=== PATIENT | female | born 1985 | race Caucasian/White ===

== ENCOUNTER 2016-09-22 12:09 | Emergency (ER) | payer MEDICAID, OTHER ==
[~2016-09-22] VITALS: Ht 154.9 cm; Wt 53.5 kg
[~2016-09-22 12:09] MED LIST: BUSP10 PO; PAXI10TA PO
[2016-09-22 12:24] VITALS: BP 110/76; PULSE 90; RESP 16; TEMP 98.6; O2SAT 100
--- NOTE | 2016-09-22 12:41 | PD ---
HPI Chief Complaint: Injury Time Seen by Provider: 12:40 Travel History International Travel<30 days: No Contact w/Intl Traveler<30days: No Traveled to known affect area: No History of Present Illness HPI 30-year-old 25 week gravid right-hand dominant female presents to the ED for evaluation of 3 day history of pain and swelling of the right upper extremity. 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 She denies numbness, tingling, weakness, limitations to range of motion of the right upper extremity. Patient denies previous injury to the area. She is been treating at home with ice and Austin balm with no improvement of symptoms. She endorses active movement. Next OB appointment in 5 days. PFSH Past Medical History Hx Anticoagulant Therapy: No Anxiety: Yes Cancer: No Cardiovascular Problems: Yes (HTN) Chemotherapy: No Cerebrovascular Accident: No Diabetes: No Diminished Hearing: No Endocrine: No Immune Disorder: No Respiratory: No Immunizations Current: Yes Migraines: Yes Seizures: Yes (Twice in the past) ?: LMP: 04/09/16 : 1 Para: 1 Past Surgical History Section: Yes Hysterectomy: No Other Surgery: Yes () Social History Alcohol Use: No Tobacco Use: No Substance Use: Yes (ecstasy and pot denies at this time) Allergies-Medications (Allergen,Severity, Reaction): Coded Allergies: Tramadol (Verified Allergy, Severe, seizure, 09/22/16) Seroquel (Verified Adverse Reaction, Severe, MUSCLE SPASMS, 09/22/16) *MDRO Multi-Drug Resistant Organism (Verified Adverse Reaction, Unknown, ) MRSA PCR positive 02/17/2015 Reported Meds & Prescriptions Reported Meds & Active Scripts Active No Active Prescriptions or Reported Medications Review of Systems Except as stated in HPI: all other systems reviewed are Neg Physical Exam Narrative GENERAL: Well-nourished, well-developed white female in no acute distress. SKIN: Warm and dry. HEAD: Normocephalic. EYES: No scleral icterus. No injection or drainage. NECK: Supple, trachea midline. No JVD or lymphadenopathy. CARDIOVASCULAR: Regular rate and rhythm without murmurs, gallops, or rubs. RESPIRATORY: Breath sounds equal bilaterally. No accessory muscle use. GASTROINTESTINAL: Abdomen gravid, soft, non-tender, nondistended. MUSCULOSKELETAL: No cyanosis, or edema. FOCUSED RIGHT UPPER EXTREMITY EXAM: 2+ radial pulse. Tender to palpation over the tendon of the extensor carpi radialis. There is mild crepitus to palpation. Pain worsened with flexion and extension of the index finger. Patient retains flexion, extension, supination, pronation of the right elbow and wrist. Patient retains full ROM of the digits of the right hand. Sensation intact to light touch distally. Cap refill less than 2 seconds. BACK: Nontender without obvious deformity. No CVA tenderness. Data Data Last Documented VS Vital Signs Date Time Temp Pulse Resp B/P Pulse Ox O2 Delivery O2 Flow Rate FiO2 09/22/16 12:24 98.6 90 16 110/76 100 MDM Medical Decision Making Medical Screen Exam Complete: Yes Emergency Medical Condition: Yes Differential Diagnosis Tendinitis versus calcific tendinitis versus sprain versus strain versus other Narrative Course 30-year-old 25 week gravid right-hand dominant female presents to the ED for evaluation of 3 day history of pain and swelling of the right upper extremity. 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 She denies numbness, tingling, weakness, limitations to range of motion of the right upper extremity. Patient denies previous injury to the area. She is been treating at home with ice and Austin balm with no improvement of symptoms. She endorses active movement. Next OB appointment in 5 days. Vitals reviewed. Physical exam reveals a nontoxic-appearing white female in no acute distress. Focused right upper extremity exam reveals a 2+ radial pulse. TTP with mild crepitus over the tendons of the extensor carpi radialis. Pain worsened with flexion and extension of the index finger. Patient retains flexion, extension, supination, pronation of the right elbow and wrist. Patient retains full ROM of the digits of the right hand. Sensation intact to light touch distally. Cap refill less than 2 seconds. This is tendinitis due to repetitive use. Given the patient's NSAIDs are contraindicated. The patient had a Francesco bandage in her purse, I demonstrated proper wrapping techniques. I instructed her to rest, ice, elevate the extremity, take Tylenol up to 3 times a day as needed for pain. She was given a note for 1 weeks time off work. She is instructed to follow-up with the [facility] as planned. She indicated understanding of instructions and is amenable to plan of care. She is stable and discharged home. Diagnosis Primary Impression: Tendonitis of wrist, right Referrals: Client Consultant Patient Instructions: General Instructions, Tendinitis (ED) Additional Instructions: Rest, ice, elevate the extremity. Apply ice no longer than 10-15 minutes per hour a few times a day. Tylenol up to 3 times a day as needed for pain. Return to normal, gentle activity as tolerated. Follow up with your [facility] as planned. Return to the ED for any urgent or emergent medical condition. Scripts No Active Prescriptions or Reported Meds Disposition: 01 DISCHARGE HOME Condition: Stable Mona Rush Sep 22, 2016 12:41
== END 2016-09-22 13:21 | disposition home or self-care (01) ==
LOC: PHEFT 12:09
DX: M77.9 Enthesopathy, unspecified (principal); I10 Essential (primary) hypertension; X50.3XXA Overexertion from repetitive movements, initial encounter; Y99.0 Civilian activity done for income or pay
CPT/HCPCS: 99282

== ENCOUNTER 2016-11-17 12:57 | Inpatient (IN) | payer MEDICAID ==
[2016-12-16] VITALS (26 sets, daily range): BP systolic 107–124; BP diastolic 59–77; PULSE 74–107; RESP 16–20; TEMP 97.9–99.3; O2SAT 98–100
[2016-12-16] MEDS ORDERED: ceFAZolin 2 GM PREMIX 50 ML IV SCH (07:30)
[2016-12-16] MEDS ORDERED: LACTATED RINGER'S 1000 ML IV ONE (07:30)
[2016-12-16] MEDS ORDERED: CITRIC ACID-SODIUM CITRATE LIQ 30 ML UDC PO SCH (07:30)
[2016-12-16] MEDS: LACTATED RINGER'S 1000 ML IV SCH ×2 (08:10→14:40)
[2016-12-16 08:26] LABS: AUTOMATED NEUTROPHIL # 6.5 TH/MM3 (1.8-7.7); BASOPHIL % 0.2 % (0.0-2.0); EOSINOPHIL % 0.4 % (0.0-4.0); HEMATOCRIT 35.2 % (35.0-46.0); HEMO FLAGS DIFF FINAL; LYMPH % 21.5 % (9.0-44.0); MEAN CELL VOLUME 95.8 FL (80.0-100.0); MEAN CORPUSCULAR HEMOGLOBIN 32.2 PG (27.0-34.0); MEAN CORPUSCULAR HGB CONC 33.6 % (32.0-36.0); MONO % 8.9 % (0.0-8.0); PLATELET COUNT 228 TH/MM3 (150-450); RED BLOOD COUNT 3.67 MIL/MM3 (4.00-5.30); RED CELL DISTRIBUTION WIDTH 12.8 % (11.6-17.2); WHITE BLOOD COUNT 9.4 TH/MM3 (4.0-11.0)
[2016-12-16 08:36] LABS: BACTERIA, URINE MOD /hpf; BLOOD, URINE NEG (NEG); COMMENT (UR) CULTURE INDICATED; CULTURE IF INDICATED CULTURE INDICATED; GLUCOSE,URINE NEG (NEG); KETONE, URINE NEG (NEG); MUCUS URINE FEW /lpf (OCC); NITRITE,URINE NEG (NEG); PH, URINE 6.5 (5.0-8.5); SQUAMOUS EPITHELIAL CELL URINE 16 /hpf (0-5); URINE COLOR YELLOW (YELLW/STRAW)
[2016-12-16] MEDS ORDERED: DICLOFENAC SODIUM 37.5 MG/ML VIAL IV PUSH ONE (08:50)
[2016-12-16] MEDS ORDERED: ONDANSETRON HCL 4 MG/2 ML VIAL ONE (08:51)
[2016-12-16] MEDS ORDERED: ACETAMINOPHEN 1000 MG/100 ML VIAL IV ONE (08:51)
[2016-12-16] MEDS ORDERED: OXYTOCIN 10 UNIT/ML AMP ONE (08:51)
[2016-12-16] MEDS ORDERED: MORPHINE SULFATE PF 5 MG/10 ML VIAL ONE (08:51)
[2016-12-16] MEDS ORDERED: SODIUM CHLORIDE 0.9% FLUSH 10 ML FLUSH IV FLUSH PRN (09:15)
[2016-12-16] MEDS ORDERED: DOCUSATE SODIUM 50 MG/SENNA 8.6 MG TAB PO PRN (09:15)
[2016-12-16] MEDS ORDERED: oxyCODONE/ACETAMINOPHEN 5 MG/325 MG TAB PO PRN ×2 (09:15)
[2016-12-16] MEDS ORDERED: ZOLPIDEM TARTRATE 5 MG TAB PO PRN (09:15)
[2016-12-16] MEDS ORDERED: ONDANSETRON HCL 4 MG/2 ML VIAL IV PUSH PRN (09:15)
[2016-12-16] MEDS ORDERED: OXYTOCIN 30 UNITS-500ML PREMIX 500 ML IV ONE (09:15)
[2016-12-16] MEDS: ACETAMINOPHEN 1000 MG/100 ML VIAL IV SCH (09:30)
[2016-12-16] MEDS: DICLOFENAC SODIUM 37.5 MG/ML VIAL IV PUSH SCH ×3 (09:30→23:06)
--- NOTE | 2016-12-16 10:04 | PD.OB.DELI ---
Procedure Note Section Procedure Pre Op Diagnosis 37 week IUP cholestasis hep C prior section Post Op Diagnosis: Post Op Diagnosis same, delivered Performed by Fani Fair Procedure: Repeat Low Transverse Sec, Other (BTL ) Indication for delivery: Desired elective repeat Informed consent obtained: For anesthesia, For procedure Confirmed correct: Patient, Procedure, Site, Time-out taken Anesthesia: Spinal Medication prior to procedure: As documented in eMAR Monitoring during procedure: Blood pressure monitoring Urinary catheter: Inserted using sterile technique, To dependent drainage, ml urine output Sterile preparation: Duraprep, In usual fashion Position: Supine with wedge to right side Operative Features Skin Incision: Pfannenstiel Uterine Incision: Low transverse w/knife / blunt ext Membranes Ruptured: Artificially Presentation: Occiput anterior Delivery of : Assisted : Female One Minute : 8 Five Minute : 9 Weight: 5 12 Status of infant: Viable Placenta delivered: Intact Medications: Antibiotics Estimated blood loss: 500 Procedure tolerated: Well Maternal Condition: Stable Condition: Stable Fani Fair MD Dec 16, 2016 10:04
[2016-12-16] MEDS ORDERED: OXYTOCIN 30 UNITS-500ML PREMIX 500 ML ONE (10:34)
[2016-12-16] MEDS ORDERED: fentaNYL CITRATE 250 MCG/5 ML AMP ONE (10:43)
[2016-12-16] MEDS ORDERED: EPIDURAL-DIPHENHYDRAMINE HCL 50 MG CAP PO PRN (12:30)
[2016-12-16] MEDS ORDERED: EPIDURAL-NALOXONE HCL 0.4 MG/ML AMP IV PRN (12:30)
[2016-12-16] MEDS ORDERED: EPIDURAL-NO SYSTEMIC NARCOTICS PRN (12:30)
[2016-12-16] MEDS ORDERED: EPIDURAL-DIPHENHYDRAMINE HCL 50 MG/ML VIAL IV PUSH PRN (12:30)
[2016-12-16] MEDS ORDERED: EPIDURAL-DO NOT ADMINISTER ANTICOAGULANTS PRN (12:30)
--- NOTE | 2016-12-16 13:37 | MH ---
cc: AWA BHAKTA DATE OF ADMISSION: 12/16/2016 PREOPERATIVE DIAGNOSIS: 37 week intrauterine with cholestasis of Prior section x1 and desired repeat with tubal. History of IV drug use and prolonged recovery. Hepatitis C. POSTOPERATIVE DIAGNOSIS 37 week intrauterine with cholestasis of Prior section x1 and desired repeat with tubal. History of IV drug use and prolonged recovery. Hepatitis C. PROCEDURE Repeat low transverse scheduled procedure is repeat low transverse segment section. HISTORY OF PRESENT ILLNESS The patient is a 31-year-old female 2, para 1-0-0-1 at 37 and 07/22 weeks estimated gestational age by 14-week ultrasound, who began at about 35 weeks to have severe itching of her extremities and torso. She was scratching her skin open. Medrol Dosepak and topical' s were not helping. Liver functions were mildly elevated but it was known that she was Hepatitis C positive. However, bile acids did come back elevated and then repeat functions one week later showed mild further elevation in her Liver function tests and bile acids. A decision was made to proceed with her section today which is Sunday12/17/2015. The risks, benefits, indications, have all been explained to her. She has had no labor, gestational diabetes or hypertension. She was compliant with her care. The patient had good movement. No leaking, bleeding. Her blood type was Rh positive. She is immune to [place] measles and chickenpox. She is not anemic. Urinalysis was negative. She is Hepatitis C positive but other serology is negative. Her Glucola was normal. FAMILY HISTORY: Family history is noncontributory. She currently uses no substances. OBSTETRICAL HISTORY: She has had a previous section for a cephalic pelvic disproportion. She desires a repeat and a tubal on she has been counseled on the risks, benefits, alternatives, expectations of tubal ligation PHYSICAL EXAMINATION IN GENERAL: She is a well-developed, well-nourished female in no acute distress. VITAL SIGNS: She is afebrile with stable vital signs. NECK: She has no thyromegaly. LUNGS: Her lungs were clear. HEART: Her heart rate and rhythm are regular, her fundus is 37 weeks. The is vertex position. The placenta is a low-lying posterior placenta on ultrasound. The baby is appropriate for gestational age. The cervix was 50%, fingertip in the office. EXTREMITIES: Show no edema. No elevation of tendon reflexes. She does have scratches from her itching. IMPRESSION At this point is early term IUP with cholestasis of prior section and desire for repeat, history of IV drug use and hepatitis C positive. PLAN: Plan is to proceed with repeat and tubal ligation after she is done nursing her . We will see if we can enter into her Medicaid, hepatitis C treatment program. Awa Bhakta MD PPC/ /9:06 AM /1:24 PM
[2016-12-16] MEDS: LACTATED RINGER'S 1000 ML INJ 1,000 ML IV SCH (14:06)
[2016-12-16] MEDS ORDERED: ACETAMINOPHEN 1000 MG/100 ML VIAL IV SCH ×2 (17:30)
[2016-12-16] MEDS ORDERED: OXYTOCIN 30 UNITS-500ML PREMIX 500 ML IV PRN (19:15)
[2016-12-16] MEDS ORDERED: SODIUM CHLORIDE 0.9% FLUSH 10 ML FLUSH IV FLUSH SCH (21:00)
[2016-12-17] MEDS: LACTATED RINGER'S 1000 ML INJ 1,000 ML IV SCH (01:00)
[2016-12-17] MEDS: DICLOFENAC SODIUM 37.5 MG/ML VIAL IV PUSH SCH (04:52)
[2016-12-17 06:31] LABS: AUTOMATED NEUTROPHIL # 6.6 TH/MM3 (1.8-7.7); BASOPHIL % 0.2 % (0.0-2.0); EOSINOPHIL # 0.1 TH/MM3 (0-0.4); EOSINOPHIL % 0.6 % (0.0-4.0); HEMATOCRIT 30.6 % (35.0-46.0); HEMO FLAGS DIFF FINAL; LYMPH % 20.5 % (9.0-44.0); LYMPHOCYTE # 1.9 TH/MM3 (1.0-4.8); MEAN CELL VOLUME 95.2 FL (80.0-100.0); MEAN CORPUSCULAR HEMOGLOBIN 32.9 PG (27.0-34.0); MEAN CORPUSCULAR HGB CONC 34.5 % (32.0-36.0); MONO % 7.8 % (0.0-8.0); NEUT % 70.9 % (16.0-70.0); PLATELET COUNT 186 TH/MM3 (150-450); RED BLOOD COUNT 3.21 MIL/MM3 (4.00-5.30); RED CELL DISTRIBUTION WIDTH 12.6 % (11.6-17.2); WHITE BLOOD COUNT 9.3 TH/MM3 (4.0-11.0)
[2016-12-17 09:35] VITALS: BP 110/70; PULSE 80; RESP 18; TEMP 97.8
[2016-12-17] MEDS: IBUPROFEN 600 MG TAB PO PRN ×2 (10:29→18:00)
[2016-12-17] MEDS: LACTATED RINGER'S 1000 ML IV SCH ×2 (10:30→17:20)
--- NOTE | 2016-12-17 10:50 | HHI.OB ---
Subjective Post Operative Day: 1 Objective Vitals/I&O Vital Signs Date Time Temp Pulse Resp B/P Pulse Ox O2 Delivery O2 Flow Rate FiO2 12/17/16 09:35 110/70 12/17/16 09:35 97.8 80 18 12/16/16 20:30 98.7 87 18 98 12/16/16 20:30 107/65 12/16/16 15:30 99.3 82 18 12/16/16 15:30 108/75 12/16/16 13:30 98.7 79 16 110/70 12/16/16 11:52 97.9 77 19 117/77 12/16/16 11:18 97.9 12/16/16 11:17 90 18 100 12/16/16 11:16 124/75 12/16/16 11:01 79 18 111/61 100 Result Diagram: 12/17/16 0617 Objective Remarks GENERAL: Well-nourished, well-developed patient. CARDIOVASCULAR: Regular rate and rhythm without murmurs, gallops, or rubs. RESPIRATORY: Breath sounds equal bilaterally. No accessory muscle use. ABDOMEN/GI: Abdomen soft, non-tender, bowel sounds present. Incision: Clean, dry and intact. Fundus: Firm, non-tender at umbilicus. GENITOURINARY: Light to moderate bleeding. EXTREMITIES: No cyanosis or edema, non-tender, without signs of DVT. Medications and IVs Current Medications Medications (Trade) Dose Ordered Sig/Minerva Route Start Time Stop Time Status Last Admin (Lr 1000 ml Inj) 1,000 ml @ 150 mls/hr Q6H40M IV 12/16/16 08:00 12/16/16 08:10 (NS Flush) 2 ml BID IV FLUSH 12/16/16 21:00 (NS Flush) 2 ml UNSCH PRN IV FLUSH 12/16/16 09:15 (Mylicon Chew) 80 mg QID PRN PO 12/16/16 09:15 (Motrin) 600 mg Q6H PRN PO 12/16/16 09:15 12/17/16 10:29 (Percocet 5-325 Mg) 1 tab Q4H PRN PO 12/16/16 09:15 (Percocet 5-325 Mg) 2 tab Q4H PRN PO 12/16/16 09:15 (Huyen-Colace) 2 tab Q12H PRN PO 12/16/16 09:15 (Ambien) 5 mg HS PRN PO 12/16/16 09:15 (M-M-R Ii Inj) 0.5 ml ONCE ONCE SQ 12/17/16 16:00 12/17/16 16:01 (Boostrix Inj) 0.5 ml ONCE ONCE IM 12/17/16 16:00 12/17/16 16:01 (Zofran Inj) 4 mg Q6H PRN IV PUSH 12/16/16 09:15 Miscellaneous Information NO SYSTEMIC NARCOTICS TO BE GIVEN FO... UNSCH PRN .XX 12/16/16 12:30 12/17/16 12:29 (Narcan Inj) 0.4 mg UNSCH PRN IV 12/16/16 12:30 12/17/16 12:29 (Benadryl Inj) 25 mg Q6H PRN IV PUSH 12/16/16 12:30 12/17/16 12:29 12/16/16 14:05 (Benadryl) 50 mg Q6H PRN PO 12/16/16 12:30 12/17/16 12:29 Miscellaneous Information ALL NURSING DEPARTMENTS UNSCH PRN .XX 12/16/16 12:30 12/17/16 12:29 Assessment/Plan Assessment and Plan Doing well post op day one incision clean and dry LFTS in am routine stay anticipated Fani Fair MD Dec 17, 2016 10:50
[2016-12-17] MEDS: SIMETHICONE 80 MG CHEWABLE TAB PO PRN (15:26)
[2016-12-17 15:35] VITALS: BP 105/75; PULSE 92; RESP 20; TEMP 98
[2016-12-17] MEDS ORDERED: DIPHTH/TETANUS/ACEL PERTUSSIS (BOOSTER) 0.5 ML VIAL/PFS IM ONE (16:00)
[2016-12-17] MEDS ORDERED: MEASLES, MUMPS, RUBELLA VACCINE 0.5 ML VIAL SQ ONE (16:00)
--- NOTE | 2016-12-17 16:23 | MP ---
cc: FANI BHAKTA M.D. DATE OF SURGERY: 12/16/2016. PREOPERATIVE DIAGNOSIS: 1. A 37 week intrauterine with cholestasis of . 2. History of hepatitis C. 3. Previous section x1 with desired repeat and tubal ligation. POSTOPERATIVE DIAGNOSIS 1. A 37 week intrauterine with cholestasis of . 2. History of hepatitis C. 3. Previous section x1 with desired repeat and tubal ligation. OPERATIVE PROCEDURE PERFORMED: Repeat low transverse segment section, bilateral tubal ligation, actually it was a classic Keith on the right side and a fimbriectomy on the left side. SURGEON: Fani Bhakta MD. JAVA DEVELOPER: DAVID Silvestre. ANESTHESIA: Spinal with Duramorph. FINDINGS: A living female weighing 5 pounds 12 ounces was delivered from CECIL position with clear fluid and no nuchal cord. Her Apgars were 8 at one and 9 at five. We did not clamp the cord for 45 seconds. She had a good cry on the abdomen and did stay for skin to skin. Tubal was unremarkable. There did appear to be some ecchymosis between the bladder at the lower uterine segment. This was repaired with chromic. Urine was noted to be pink-tinged at the end of the case but it is anticipated it will resolve. DESCRIPTION OF THE PROCEDURE IN DETAIL: The patient was walked to the operative room after she was again consented. She was sat on the operating room table and a spinal was administered. She was placed in dorsal supine position with weight off the vena cava. A Corado catheter was placed. Sequential stockings were placed. She received 1 gram Ancef preoperatively. She was prepped and draped in the usual sterile fashion. A time-out was performed. Analgesia was confirmed and then a Pfannenstiel incision was made through her previous incision and taken down through the subcutaneous tissue to the rectus fascia. The rectus fascia was incised in an elliptical fashion and then sharply dissected off the rectus muscle superiorly and inferiorly. A mild rectus diastasis was noted and the midline was and the parietal peritoneum entered. The uterus was entered gently with a knife in the midline and this was extended in a vertical blunt fashion. The amniotic sac was intact and the fluid was clear. The infant was then delivered with the classic maneuvers. The cord was clamped x2 and cut after 45 seconds and she was handed to the neonatology team in attending. Cord blood was obtained. The posterior placenta was removed intact and noted to have a three-vessel cord. The uterus was then massaged, cleaned and then the incision was closed with chromic in a running interlocking fashion followed by a second horizontal imbricating layer. Additional suture was thrown between the lower uterine segment and the bladder. The right tube was then identified and the fimbria was scarred to very large varicosities so a classic Keith was done on this side with the midline tube tied off x3 and the knuckle excised. On the patient's left, a classic fimbriectomy was performed. Then the uterus was replaced into the abdominal cavity and the incision carefully checked for hemostasis. Irrigation was performed and then the rectus muscles / peritoneum were closed in a running fashion. The fascia was closed with Vicryl in a running, non-interlocking fashion. Subcutaneous layer was closed with 3-0 plain and the skin was closed with 4-0 Vicryl on a Gary needle. Fani Bhakta MD PPC/JCC /10:08 AM /4:13 PM
[2016-12-17] MEDS: ACETAMINOPHEN 325 MG TAB PO PRN (23:39)
[2016-12-17] MEDS ORDERED: KETOROLAC TROMETHAMINE 60 MG/2 ML (IM) VIAL IM ONE (23:45)
[2016-12-18] MEDS: SIMETHICONE 80 MG CHEWABLE TAB PO PRN (03:02)
[2016-12-18] MEDS: IBUPROFEN 600 MG TAB PO PRN ×3 (06:02→17:53)
[2016-12-18] MEDS: ACETAMINOPHEN 325 MG TAB PO PRN ×3 (06:02→17:53)
[2016-12-18 06:14] LABS: INDIRECT BILIRUBIN 0.2 MG/DL (0.0-0.8); TOTAL BILIRUBIN ADULT 0.3 MG/DL (0.2-1.0)
[2016-12-18 08:10] VITALS: BP 117/78; PULSE 81; RESP 18; TEMP 98.7
--- NOTE | 2016-12-18 08:55 | HHI.OB ---
Subjective Post Day: 2 Remarks doing well, breast and bottlefeeding, + flatus Objective Vitals/I&O Vital Signs Date Time Temp Pulse Resp B/P Pulse Ox O2 Delivery O2 Flow Rate FiO2 12/18/16 08:10 98.7 81 18 117/78 12/17/16 15:35 98.0 92 20 105/75 12/17/16 09:35 110/70 12/17/16 09:35 97.8 80 18 Objective Remarks GENERAL: Well-nourished, well-developed patient. CARDIOVASCULAR: Regular rate and rhythm without murmurs, gallops, or rubs. RESPIRATORY: Breath sounds equal bilaterally. No accessory muscle use. ABDOMEN/GI: Abdomen soft, non-tender. Fundus: Firm, non-tender at umbilicus., incision C/D/I GENITOURINARY: Light to moderate bleeding. EXTREMITIES: No cyanosis or edema, non-tender, without signs of DVT. Medications and IVs Current Medications Medications (Trade) Dose Ordered Sig/Minerva Route Start Time Stop Time Status Last Admin (Lr 1000 ml Inj) 1,000 ml @ 150 mls/hr Q6H40M IV 12/16/16 08:00 12/16/16 08:10 (NS Flush) 2 ml BID IV FLUSH 12/16/16 21:00 (NS Flush) 2 ml UNSCH PRN IV FLUSH 12/16/16 09:15 (Mylicon Chew) 80 mg QID PRN PO 12/16/16 09:15 12/18/16 03:02 (Motrin) 600 mg Q6H PRN PO 12/16/16 09:15 12/18/16 06:02 (Percocet 5-325 Mg) 1 tab Q4H PRN PO 12/16/16 09:15 (Percocet 5-325 Mg) 2 tab Q4H PRN PO 12/16/16 09:15 (Huyen-Colace) 2 tab Q12H PRN PO 12/16/16 09:15 (Ambien) 5 mg HS PRN PO 12/16/16 09:15 (Zofran Inj) 4 mg Q6H PRN IV PUSH 12/16/16 09:15 (Tylenol) 650 mg Q4H PRN PO 12/17/16 23:30 12/18/16 06:02 Assessment/Plan Assessment and Plan Doing well post op day 2 incision clean and dry LFTS in am routine stay anticipated Discharge Planning routine Attending Attestation pt seen by Linda Sweet MD Dec 18, 2016 08:55
[2016-12-18 19:00] VITALS: BP 117/80; PULSE 96; RESP 18; TEMP 99.2
[2016-12-19] MEDS: IBUPROFEN 600 MG TAB PO PRN ×2 (00:02→06:15)
[2016-12-19] MEDS: ACETAMINOPHEN 325 MG TAB PO PRN ×2 (00:03→06:15)
--- NOTE | 2016-12-19 07:27 | HHI.OB ---
Subjective Post Day: 3 Objective Vitals/I&O Vital Signs Date Time Temp Pulse Resp B/P Pulse Ox O2 Delivery O2 Flow Rate FiO2 12/18/16 19:00 99.2 96 18 117/80 12/18/16 08:10 98.7 81 18 117/78 Objective Remarks GENERAL: Well-nourished, well-developed patient. CARDIOVASCULAR: Regular rate and rhythm without murmurs, gallops, or rubs. RESPIRATORY: Breath sounds equal bilaterally. No accessory muscle use. ABDOMEN/GI: Abdomen soft, non-tender. Fundus: Firm, non-tender at umbilicus., incision C/D/I GENITOURINARY: Light to moderate bleeding. EXTREMITIES: No cyanosis or edema, non-tender, without signs of DVT. Medications and IVs Current Medications Medications (Trade) Dose Ordered Sig/Minerva Route Start Time Stop Time Status Last Admin (Lr 1000 ml Inj) 1,000 ml @ 150 mls/hr Q6H40M IV 12/16/16 08:00 12/16/16 08:10 (NS Flush) 2 ml BID IV FLUSH 12/16/16 21:00 (NS Flush) 2 ml UNSCH PRN IV FLUSH 12/16/16 09:15 (Mylicon Chew) 80 mg QID PRN PO 12/16/16 09:15 12/18/16 03:02 (Motrin) 600 mg Q6H PRN PO 12/16/16 09:15 12/19/16 06:15 (Percocet 5-325 Mg) 1 tab Q4H PRN PO 12/16/16 09:15 (Percocet 5-325 Mg) 2 tab Q4H PRN PO 12/16/16 09:15 (Huyen-Colace) 2 tab Q12H PRN PO 12/16/16 09:15 12/19/16 06:18 (Ambien) 5 mg HS PRN PO 12/16/16 09:15 (Zofran Inj) 4 mg Q6H PRN IV PUSH 12/16/16 09:15 (Tylenol) 650 mg Q4H PRN PO 12/17/16 23:30 12/19/16 06:15 Assessment/Plan Assessment and Plan Doing well post op day 3 home with follow up in office one week Discharge Planning routine Fani Fair MD Dec 19, 2016 07:27
[2016-12-19] MEDS ORDERED: IBUP-232 PO (07:31)
--- NOTE | 2016-12-19 07:32 | HHI.DCPOC ---
Discharge Care Plan Report Symptoms to Your Doctor -Temperature above 100.5 degrees -Redness, of incision or excessive or foul smelling drainage -Unusual pain or calf pain -Increased vaginal bleeding -Painful or difficulty urinating -Feelings of extreme sadness or anxiety after 2 weeks Goals to Promote Your Health * To prevent worsening of your condition and complications * To maintain your health at the optimal level Directions to Meet Your Goals Take your medications as prescribed Follow your dietary instruction Follow activity as directed Ensure plenty of rest for recovery Drink fluids for hydration Keep your appointments as scheduled Take your immunizations and boosters as scheduled If your symptoms worsen call your PCP, if no PCP go to Urgent Care Center or Emergency Room Smoking is Dangerous to Your Health. Avoid second hand smoke Call the 24-hour crisis hotline for domestic abuse at Fani Fair MD Dec 19, 2016 07:32
[2016-12-19 08:20] VITALS: BP 106/73; PULSE 89; RESP 18; TEMP 98.2
== END 2016-12-19 12:59 | disposition home or self-care (01) | DRG 765 ==
LOC: H2EB 12-16 07:07 → H1EA 12-16 11:42
PROVIDERS: ADMIT Obstetrics & Gynecology; ATTEND Obstetrics & Gynecology
PROC: 10D00Z1 Extraction of Products of Conception, Low, Open Approach (ICD-10-PCS; principal; 2016-12-16)
PROC: 0UB70ZZ Excision of Bilateral Fallopian Tubes, Open Approach (ICD-10-PCS; 2016-12-16)
DX: O34.211 Maternal care for low transverse scar from previous cesarean delivery (principal); K83.1 Obstruction of bile duct; O98.42 Viral hepatitis complicating childbirth; O26.62 Liver and biliary tract disorders in childbirth; O98.513 Other viral diseases complicating pregnancy, third trimester; Z37.0 Single live birth; B06.9 Rubella without complication; Z3A.37 37 weeks gestation of pregnancy; B19.20 Unspecified viral hepatitis C without hepatic coma
CPT/HCPCS: 59025; 80076; 81001; 85025; 86850; 86900; 86901; 87086; 88302; 90715; J0131; J0690; J1130; J1200; J1885; J2274; J2405; J2590; J3010; J7120

== ENCOUNTER 2016-12-06 23:14 | Emergency (ER) | payer MEDICAID ==
[~2016-12-06] VITALS: Ht 154.9 cm; Wt 58.0 kg
[2016-12-06 23:15] VITALS: BP 118/74; PULSE 102; RESP 16; TEMP 98.8; O2SAT 98
--- NOTE | 2016-12-06 23:43 | PD ---
HPI Chief Complaint: Skin Problem Time Seen by Provider: 23:39 Travel History International Travel<30 days: No Contact w/Intl Traveler<30days: No Traveled to known affect area: No History of Present Illness HPI 31-year-old 2 para 1 with a 34+5 week estimated gestational age IUP presents with a 2 day history of pruritus. She states that she has had a similar episode a few months ago. It resolved spontaneously. She states that this time now for the last 2 days she has itching on her forearms, palms, inner thighs and feet. She has had no rashes or lesions. She does not call any causative agent. No new dietary changes. No environmental changes. No new chemicals. No hives. No recent exposures. She does state that a few days ago she did have a sore throat and slight cough. She had one episode of posttussive emesis. She denies any abdominal pain. No vaginal bleeding or leakage of fluid. She has normal movement. She called the OB medical receptionist medical assistant who advised to come to the ER. PFSH Past Medical History Hx Anticoagulant Therapy: No Anxiety: Yes Cancer: No Cardiovascular Problems: Yes (HTN) Chemotherapy: No Cerebrovascular Accident: No Diabetes: No Diminished Hearing: No Endocrine: No Immune Disorder: No Respiratory: No Immunizations Current: Yes Migraines: Yes Seizures: Yes (Twice in the past) Tetanus Vaccination: Unknown Influenza Vaccination: No ?: LMP: DUE 01/06/17 : 2 Para: 1 Past Surgical History Section: Yes Hysterectomy: No Other Surgery: Yes () Social History Alcohol Use: No Tobacco Use: No Substance Use: Yes (ecstasy and pot denies at this time) Allergies-Medications (Allergen,Severity, Reaction): Coded Allergies: Tramadol (Verified Allergy, Severe, seizure, 12/06/16) Seroquel (Verified Adverse Reaction, Severe, MUSCLE SPASMS, 12/06/16) *MDRO Multi-Drug Resistant Organism (Verified Adverse Reaction, Unknown, ) MRSA PCR positive 02/17/2015 Reported Meds & Prescriptions Reported Meds & Active Scripts Active No Active Prescriptions or Reported Medications Review of Systems Except as stated in HPI: all other systems reviewed are Neg Skin: Positive Itching, No Rash, No Dryness Physical Exam Narrative GENERAL: Well-developed, well-nourished in no acute distress. Nontoxic appearing. HEAD: Normocephalic, atraumatic. EYES: Pupils equal round and reactive. Extraocular motions intact. No scleral icterus. No injection or drainage. ENT: TMs clear without erythema. The external auditory canals clear. Nose: clear . Posterior pharynx is pink and moist. No tonsillar edema or exudate. Uvula midline. Airway patent. NECK: Trachea midline.Supple, nontender, moves head freely. No central bony tenderness or spasm. CARDIOVASCULAR: Regular rate and rhythm without murmurs, gallops, or rubs. RESPIRATORY: Clear to auscultation. Breath sounds equal bilaterally. No wheezes , rales, or rhonchi. GASTROINTESTINAL: Abdomen soft, non-tender, gravid uterus. No movement. EXTREMITIES: No clubbing, cyanosis, or edema. No joint tenderness, effusion, or edema noted. BACK: Nontender without deformity or crepitance. No flank tenderness. Skin: No rashes or lesions. Data Data Last Documented VS Vital Signs Date Time Temp Pulse Resp B/P Pulse Ox O2 Delivery O2 Flow Rate FiO2 12/06/16 23:23 16 12/06/16 23:15 98.8 102 118/74 98 Room Air MDM Medical Decision Making Medical Screen Exam Complete: Yes Emergency Medical Condition: Yes Medical Record Reviewed: Yes Differential Diagnosis Differential diagnosis: Contact dermatitis, allergic reaction, pruritus of Narrative Course This is pruritus of Diagnosis Primary Impression: Pruritus of in third trimester Patient Instructions: General Instructions Additional Instructions: Rest. Use 1% hydrocortisone cream 3 times daily. May take 1 Claritin or Zyrtec daily. Follow-up with your OB doctor in the next 2 days. Return to the ER for emergencies. Med/Other Pt SpecificInfo: No Meds Exist/No RX given Scripts No Active Prescriptions or Reported Meds Disposition: 01 DISCHARGE HOME Condition: Stable Renny Rice December 06, 2016 23:43
== END 2016-12-07 00:26 | disposition home or self-care (01) ==
LOC: NEPK 23:14
DX: O26.893 Other specified pregnancy related conditions, third trimester (principal); Z3A.34 34 weeks gestation of pregnancy
CPT/HCPCS: 99282